=== PATIENT | female | born 1955 | race Asian ===

== ENCOUNTER → 2018-08-14 | Outpatient (CLI) | payer BC ==
--- NOTE | 2018-08-14 17:53 | CONS ---
Assessment/Plan Assessment/Plan Hospital Course (Demo Recall) This is a 63-year-old female who presents with 1 month of left anterior knee pain. On radiographs she does have some patellofemoral arthritis. Her symptoms and history are most consistent with patellofemoral syndrome as well. At this time we will start conservative treatment. Plan: Meloxicam [employer] Follow-up in 3 months or as needed Consultation Date/Type/Reason Admit Date/Time Date of Consultation: Aug 14, 2018 Reason for Consultation Left knee pain Date/Time of Note DATE: 08/14/18 TIME: 17:48 Hx of Present Illness Is a 63-year-old female with a chief complaint of left knee pain. The pain began approximately 1 month ago. The patients pain is in the anterior and proximal aspect of the left knee. Pain is not radiating to the lower leg. The pain is rated as a 6/10. Patient denies complaints of numbness or tingling. The pain is exacerbated by rising from out of a seated position and when sitting crosslegge d. She has minimal to no pain when walking or using stairs. Pain is not relieved by NSAID's. Patient has been taking ibuprofen on a p.r.n. basis as well as using ice. Duration: 1 month Injury: No Walking tolerance: 3 miles Limp: No Support: No Swelling: No Crepitation: No Instability: No Stairs: Uses normally Physical Therapy: No Injections: No NSAIDs: Ibuprofen as needed Prior surgery: No Back pain: No Hip pain: No Risk of AVN : No Patient denies fever, chills, shortness of breath, chest pain, nausea/vomiting, constipation, diarrhea, numbness, and tingling. Past Medical History Medical History: no pertinent history Past Surgical History Past Surgical Hx: no surgical history Family History Significant Family History: no pertinent family hx Social History Alcohol Use: none Smoking Status: Never smoker Drug Use: none Exam/Review of Systems Exam Vitals Weight: 140 pounds Height: 5 feet 4 inches Temperature: 90.4 Heart Rate: 69 Blood Pressure: 184/89 Respiratory Rate: 14 Exam General: Alert, oriented x3. No Acute Distress. Heart: Regular rate and rhythm. Lungs: No respiratory distress. No accessory muscle use. Musculoskeletal: Left Knee This is a well developed female who is alert, oriented times three and in no apparent distress. Skin is intact over the left knee as well as the lower extremity with no abrasions, lacerations, or ulcerations. Observation of the patient's gait reveals a non- antalgic gait with No thrust. Frontal plane alignment is slight valgus there is mild tenderness to palpation around the patella. The patient demonstrates grinding anteriorly with ROM. Range of motion: 0 extension to approximately 130 degrees of flexion. Collateral ligament testing reveals no instability with varus or valgus stress at 0 and 30 degrees of flexion. Negative Gabriela's and negative posterior drawer. Neurovascularly intact with 5/5 EHL/tibialis anterior/gastroc. Sensation intact to light touch in a sural, saphenous, deep peroneal, superficial peroneal, medial and lateral plantar nerve distribution. Palpable, symmetric dorsalis pedis and posterior tibial pulses in both lower extremities. Hip examination normal. Imaging Imaging The patient received a standard set of films today that were personally reviewed. Imaging included a standing bilateral knee AP, PA flexion, merchant views and a dedicated lateral of the affected knee: There is slight varus alignment of the knee. There is mild loss of joint space patellofemoral compartment(s). There is no significant osteophyte formation. There is no subchondral sclerosis. There are no subchondral cysts. Degenerative changes are most severe in the patellofemoral compartment(s) REBEKAH ULLOA MD Aug 14, 2018 17:53
--- NOTE | 2018-08-15 08:15 | RADRPT ---
PROCEDURE: XR Knees. CLINICAL INDICATION: Bilateral knee pain. TECHNIQUE: Total of eight views. Weightbearing frontal, oblique, and lateral views of the both kne es. Patellar views of both knees. COMPARISON: No prior study is available for comparison. FINDINGS: There is no fracture or dislocation. The soft tissues are normal. There are degenerative changes with small osteophytes arising from all 3 joint compartment margins bi laterally. There is no lytic or blastic lesion. There is no radiopaque foreign body. IMPRESSION: 1. Mild degenerative changes of both knees. 2. Otherwise unremarkable study. RPTAT: QQ .Hector Boston MD, MD Date Time Electronically viewed and signed by .Hector Boston MD, MD on 08/15/2018 08:15 .R/
== END | disposition home or self-care (01) ==
LOC: HKI 15:29
PROVIDERS: ATTEND Orthopaedic Surgery Adult Reconstructive Orthopaedic Surgery
DX: M25.562 Pain in left knee (principal)
CPT/HCPCS: 73564; G0463